=== PATIENT | male | born 1995 | race Caucasian/White ===

== ENCOUNTER 2018-10-17 13:57 | Emergency (ER) | payer BC, OTHER ==
[~2018-10-17] VITALS: Ht 188 cm; Wt 104.3 kg
[2018-10-17 14:48] LABS: URINE CLARITY CLEAR; URINE COLOR YELLOW; URINE SPECIFIC GRAVITY > 1.030 (1.005-1.035)
[2018-10-17 14:49] LABS: URINE BILIRUBIN NEGATIVE (Negative); URINE BLOOD NEGATIVE (Negative); URINE GLUCOSE-RANDOM* NEGATIVE (Negative); URINE KETONES NEGATIVE (Negative); URINE LEUKOCYTES-REFLEX NEGATIVE (Negative); URINE NITRITE-REFLEX NEGATIVE (Negative); URINE PROTEIN (DIPSTICK) NEGATIVE (Negative); URINE UROBILINOGEN 0.2 E.U./dl (0.2-1.0)
[2018-10-17] MEDS ORDERED: MEDROLDOSEPACK PO (15:03)
[2018-10-17] MEDS ORDERED: TRAMADOL 50 MG50 MG PO (15:03)
[2018-10-17 16:36] VITALS: BP 133/79
== END 2018-10-17 15:49 | disposition home or self-care (01) ==
LOC: ER 13:57
PROVIDERS: Physician Assistant
DX: S39.012A Strain of muscle, fascia and tendon of lower back, initial encounter (principal); X50.0XXA Overexertion from strenuous movement or load, initial encounter; Y92.89 Other specified places as the place of occurrence of the external cause; Y93.89 Activity, other specified; Y99.8 Other external cause status